=== PATIENT | female | born 1940 | race Caucasian/White ===

== ENCOUNTER 2023-07-26 08:45 | Outpatient (CLI) | payer MEDICARE, OTHER, SELFPAY ==
--- NOTE | 2023-07-26 08:54 | FL_ITS ---
WS: [id number] ESOPHAGRAM TECHNIQUE: Double contrast examination was performed with thin and thick barium. Upright and DAHL imag es were obtained. CLINICAL INFORMATION: DYSPHAGIA COMPARISON: None. FINDINGS: Immediate aspiration with initial thick barium. This results in coating of the trachea and proximal mainstem bronchi extending into the LEFT lower lobe. This duplicates patient's symptoms. Pro cedure was terminated at this point. Swallowing: Normal oral phase. Esophagus: Normal morphology and motility. No stricture or mass. Gastroesophageal reflux: No significant hiatal hernia. No visualized reflux. Fluoroscopy time: 1min [id number] IMPRESSION: 1. Immediate aspiration with initial thick barium with coating of the trachea and proximal mainstem bronchi extending into the LEFT lower lobe segmental bronchi. Procedure was terminated at this point. This duplicated patient's coughing symptoms. Recommend speech therapy consultation for further evalu ation and recommendations. 2. Visualized esophagus is normal in appearance. No evidence of stricture or mass. 3. Normal visualized GE junction.
== END 2023-07-26 08:46 | disposition home or self-care (01) ==
LOC: RAD 08:47
PROVIDERS: Family Provider Family Medicine; PCP Family Medicine; Visit Provider Registered Nurse
DX: R13.10 Dysphagia, unspecified (principal)
CPT/HCPCS: 74220